=== PATIENT | female | born 1985 | race Hispanic/Latino ===

== ENCOUNTER 2018-08-20 17:14 | Inpatient (IN) | payer MEDICAID, OTHER ==
[~2018-08-20] VITALS: Ht 154.9 cm; Wt 85.7 kg
[2018-08-20] MEDS ORDERED: LACTATED RINGERS 1000ML 1,000 ML IV PRN (21:24)
[2018-08-20 21:35] LABS: HEMATOCRIT 33.3 % (36-48); MEAN CORPUSCULAR HEMOGLOBIN 25.1 pg (27.0-33.0); MEAN CORPUSCULAR HGB CONC 33.4 g/dL (32.0-36.0); PLATELET COUNT (AUTO) 289 K/uL (130-400); RED BLOOD CELL COUNT(AUTO) 4.43 MIL/uL (4.00-5.50); RED CELL DISTRIBUTION WIDTH 18.2 % (11.0-15.5); WHITE BLOOD COUNT (AUTO) 9.4 K/uL (4.8-10.8)
[2018-08-20] MEDS ORDERED: OXYTOCIN-LR 20 UNITS/1000 ML 1,000 ML IV SCH (21:45)
[2018-08-21] MEDS ORDERED: OXYTOCIN 10 USP UNITS/ML ONE ×2 (00:28→11:01)
[2018-08-21] MEDS ORDERED: LACTATED RINGERS 1000ML 1,000 ML IV ONE ×2 (00:28→11:01)
[2018-08-21] MEDS ORDERED: METHYLERGONOVINE MALEATE 0.2 MG/1 ML ML ONE (00:30)
[2018-08-21] MEDS ORDERED: MEPERIDINE-PF 50 MG/ML SYG IVP SCH (08:30)
[2018-08-21] MEDS ORDERED: PROMETHAZINE HCL 25 MG/ML 1ML AMPULE IM SCH (08:30)
[2018-08-21] MEDS ORDERED: LANOLIN 30GM OINTMENT TP PRN (09:45)
[2018-08-21] MEDS ORDERED: WITCH HAZEL 1 PAD TP PRN (09:45)
[2018-08-21] MEDS ORDERED: MEASLES/MUMPS/RUBELLA VACCINE, LIVE 0.5 ML/VIAL SQ PRN (09:45)
[2018-08-21] MEDS ORDERED: BENZOCAINE/LANOLIN/ALOE VERA 60 ML AEROSOL TP PRN (09:45)
[2018-08-21] MEDS ORDERED: OXYTOCIN-LR 20 UNITS/1000 ML 1,000 ML IV SCH (09:45)
[2018-08-21] MEDS ORDERED: ACETAMINOPHEN 325 MG TAB PO PRN (09:45)
[2018-08-21] MEDS ORDERED: DIPH,PERTUSS(ACELL),TET VAC/PF 0.5 ML VIAL IM PRN (09:45)
[2018-08-21 12:40] VITALS: BP 119/74
[2018-08-21] MEDS: IBUPROFEN 600 MG TABLET PO PRN ×2 (12:48→18:46)
[2018-08-21] MEDS ORDERED: PNV1TABL17 PO (12:49)
[2018-08-21] MEDS ORDERED: FERR-82 PO (12:49)
[2018-08-21 15:07] VITALS: BP 118/77
[2018-08-21 20:44] VITALS: BP 109/62
[2018-08-21] MEDS: DOCUSATE SODIUM 100 MG CAP PO SCH (20:49)
[2018-08-22 00:58] VITALS: BP 114/71
[2018-08-22 04:51] VITALS: BP 121/77
[2018-08-22 05:18] LABS: HEMATOCRIT 29.9 % (36-48); MEAN CORPUSCULAR HEMOGLOBIN 25.1 pg (27.0-33.0); MEAN CORPUSCULAR HGB CONC 32.9 g/dL (32.0-36.0); MEAN CORPUSCULAR VOLUME 76.4 fL (79-99); PLATELET COUNT (AUTO) 214 K/uL (130-400); RED BLOOD CELL COUNT(AUTO) 3.92 MIL/uL (4.00-5.50); RED CELL DISTRIBUTION WIDTH 18.5 % (11.0-15.5); WHITE BLOOD COUNT (AUTO) 9.6 K/uL (4.8-10.8)
[2018-08-22] MEDS: IBUPROFEN 600 MG TABLET PO PRN (07:04)
[2018-08-22 07:54] VITALS: BP 111/71
[2018-08-22] MEDS: DOCUSATE SODIUM 100 MG CAP PO SCH (08:47)
[2018-08-22 10:24] LABS: HEPATITIS Bs ANTIGEN SCREEN P Negative (Negative)
[2018-08-22 11:45] VITALS: BP 119/78
== END 2018-08-22 12:50 | disposition home or self-care (01) | DRG 775 ==
LOC: LDH 17:14 → WSH 08-21 12:38
PROVIDERS: ADMIT Obstetrics & Gynecology; ATTEND Obstetrics & Gynecology
PROC: 10E0XZZ Delivery of Products of Conception, External Approach (ICD-10-PCS; principal; 2018-08-21)
PROC: 3E033VJ Introduction of Other Hormone into Peripheral Vein, Percutaneous Approach (ICD-10-PCS; 2018-08-21)
PROC: 10907ZC Drainage of Amniotic Fluid, Therapeutic from Products of Conception, Via Natural or Artificial Opening (ICD-10-PCS; 2018-08-21)
PROC: 3E0234Z Introduction of Serum, Toxoid and Vaccine into Muscle, Percutaneous Approach (ICD-10-PCS; 2018-08-21)
PROC: 3E0234Z Introduction of Serum, Toxoid and Vaccine into Muscle, Percutaneous Approach (ICD-10-PCS; 2018-08-21)
PROC: 3E0134Z Introduction of Serum, Toxoid and Vaccine into Subcutaneous Tissue, Percutaneous Approach (ICD-10-PCS; 2018-08-21)
DX: O80 Encounter for full-term uncomplicated delivery (principal); Z37.0 Single live birth; Z23 Encounter for immunization; Z3A.39 39 weeks gestation of pregnancy
CPT/HCPCS: 36415; 85027; 86592; 86850; 86900; 86901; 87340; 90715; A4351; J2175; J2210; J2550; J2590; J7120; Q2038